=== PATIENT | male | born 2000 | race Caucasian/White ===

== ENCOUNTER 2023-01-25 02:33 | Observation (INO) | payer OTHER ==
[2023-01-25] MEDS ORDERED: CEFAZOLIN 2 GM VIAL ONE ×2 (03:11→15:36)
[2023-01-25] MEDS ORDERED: Boostrix 0.5 ML (Tdap) VIAL (>/=7 yrs of age) ONE (03:12)
[2023-01-25] MEDS ORDERED: Sodium Chloride 0.9% 100 ML ONE ×2 (03:12→15:36)
[2023-01-25] MEDS ORDERED: KETAMINE 100 MG/ML (5ML VIAL) ONE (03:53)
[2023-01-25] MEDS ORDERED: Ondansetron PF 4 MG/2 ML Vial ONE ×2 (03:53→15:47)
[2023-01-25 03:55] LABS: #Monocytes 0.7 thou/uL (0.11-0.59); #Neutrophils 4.9 thou/uL (1.40-6.50); %Basophils 0.4 % (0.0-1.0); %Eosinophils 0.6 % (0.0-10.0); %Monocytes 9.5 % (0.0-10.0); %Neutrophils 69.2 % (42.0-75.0); Hematocrit 35.1 % (42.0-52.0); Hemoglobin 12.1 g/dL (14.0-18.0); Mean Corpuscular HGB CONC 34.5 g/dL (32.0-36.0); Mean Corpuscular Hemoglobin 32.4 pg (27.0-31.0); Mean Corpuscular Volume 94.1 fl (78.0-98.0); Mean Platelet Volume 10.5 fL (7.4-10.4); Platelet Count 203 10x3/uL (130-400); RBC Distribution Width 12.1 % (11.5-14.5); Red Blood Cell (RBC) Count 3.73 mill/uL (4.70-6.10); White Blood Cell (WBC) Count 7.1 10x3/uL (4.8-10.8)
[2023-01-25] MEDS ORDERED: Ketorolac Tromethamine 30 MG/ML VIAL ONE (03:57)
[2023-01-25 04:18] LABS: ALT (SGPT) 37 U/L (8-55); AST (SGOT) 32 U/L (5-34); Albumin 2.9 g/dL (3.5-5.0); Alkaline Phosphatase 44 U/L (40-110); Anion Gap 18 mmol/L (10-20); BUN (Urea Nitrogen) 14 mg/dL (8.9-20.6); Bilirubin, Total 0.4 mg/dL (0.2-1.2); Calc. Creatinine Clearance 0 mL/min (70-130); Carbon Dioxide 18 mmol/L (22-29); Chloride 115 mmol/L (98-107); Estimated GFR 30; Globulin 1.9 g/dL (2.4-3.5); Glucose 76 mg/dL (70-105); Lipase 26 U/L (8-78); Potassium 2.8 mmol/L (3.5-5.1); Protein, Total 4.8 g/dL (6.0-8.3); Sodium 148 mmol/L (136-145)
[2023-01-25 04:21] LABS: Calcium 6.5 mg/dL (7.8-10.44); Troponin I Less than 0.010 ng/mL (< 0.028)
[2023-01-25 04:30] LABS: INR-International Normal Ratio 1.3; PTT 32.1 sec (22.9-36.1); Prothrombin Time 17.2 sec (12.0-14.7)
[2023-01-25] MEDS ORDERED: Acetaminophen 325 MG TAB PO PRN (05:00)
[2023-01-25] MEDS ORDERED: Sodium Chloride 0.9% 1,000 ML IV SCH (05:00)
[2023-01-25] MEDS ORDERED: Ondansetron ODT 4 MG TAB SL PRN (05:00)
[2023-01-25] MEDS ORDERED: Ondansetron PF 4 MG/2 ML Vial IVP PRN (05:00)
[2023-01-25 05:01] LABS: Acetaminophen Less than 10 mcg/mL (10.0-30.0); Alcohol Less than 10.0 mg/dL (Less than 10); Salicylate Less than 8.0 mg/dL (15.0-30.0)
[2023-01-25 06:05] VITALS: BMI 30.9
[2023-01-25] MEDS ORDERED: Lactated Ringer's 1,000 ML IV SCH (06:15)
[2023-01-25] MEDS ORDERED: traMADol HCl 50 MG TAB PO PRN (06:17)
[2023-01-25 06:18] LABS: Anion Gap 13 mmol/L (10-20); BUN (Urea Nitrogen) 18 mg/dL (8.9-20.6); Calc. Creatinine Clearance 157 mL/min (70-130); Calcium 8.8 mg/dL (7.8-10.44); Carbon Dioxide 22 mmol/L (22-29); Chloride 110 mmol/L (98-107); Estimated GFR 106; Glucose 98 mg/dL (70-105); Potassium 3.5 mmol/L (3.5-5.1); Sodium 141 mmol/L (136-145)
[2023-01-25] MEDS ORDERED: Morphine 2 MG/ML VIAL SLOW IVP PRN (06:18)
[2023-01-25] MEDS ORDERED: Magnesium 2 GM/50 ML(in water) 2 GM in Premix 1 BAG IVPB SCH (06:30)
[2023-01-25] MEDS: Lactated Ringer's 1,000 ML IV SCH ×3 (07:41→23:56)
[2023-01-25 08:06] LABS: #Monocytes 1.2 thou/uL (0.11-0.59); #Neutrophils 9.7 thou/uL (1.40-6.50); %Basophils 0.2 % (0.0-1.0); %Eosinophils 0.1 % (0.0-10.0); %Lymphocytes 11.3 % (21.0-51.0); %Monocytes 9.3 % (0.0-10.0); Hematocrit 41.9 % (42.0-52.0); Hemoglobin 14.6 g/dL (14.0-18.0); Mean Corpuscular HGB CONC 34.8 g/dL (32.0-36.0); Mean Corpuscular Hemoglobin 32.6 pg (27.0-31.0); Mean Corpuscular Volume 93.5 fl (78.0-98.0); Mean Platelet Volume 10.5 fL (7.4-10.4); Platelet Count 233 10x3/uL (130-400); RBC Distribution Width 12.3 % (11.5-14.5); Red Blood Cell (RBC) Count 4.48 mill/uL (4.70-6.10); White Blood Cell (WBC) Count 12.4 10x3/uL (4.8-10.8)
[2023-01-25 08:27] LABS: Anion Gap 12 mmol/L (10-20); BUN (Urea Nitrogen) 18 mg/dL (8.9-20.6); Calc. Creatinine Clearance 159 mL/min (70-130); Calcium 8.8 mg/dL (7.8-10.44); Carbon Dioxide 22 mmol/L (22-29); Chloride 111 mmol/L (98-107); Estimated GFR 107; Glucose 99 mg/dL (70-105); Magnesium 1.8 mg/dL (1.6-2.6); Phosphorus 3.2 mg/dL (2.3-4.7); Potassium 3.9 mmol/L (3.5-5.1); Sodium 141 mmol/L (136-145)
[2023-01-25 08:28] LABS: Magnesium 1.8 mg/dL (1.6-2.6)
[2023-01-25] MEDS ORDERED: CEFAZOLIN 2 GM in Sodium Chloride 0.9% 100 ML IVPB SCH (08:30)
[2023-01-25] MEDS: Potassium Chloride 20 MEQ in Premix 1 BAG IVPB SCH ×2 (08:51→11:34)
[2023-01-25] MEDS: Acetaminophen 500 MG TAB PO SCH ×2 (13:01→18:14)
[2023-01-25] MEDS: traMADol HCl 50 MG TAB PO SCH ×2 (13:01→18:14)
[2023-01-25] MEDS ORDERED: fentaNYL 50 mcg/mL 1 mL Vial ONE (13:44)
[2023-01-25] MEDS ORDERED: Midazolam HCl 2 mg/2 ml Vial ONE (13:45)
[2023-01-25] MEDS ORDERED: Bupivacaine PF 0.5% 30 ML VIAL ONE (13:45)
[2023-01-25] MEDS ORDERED: Dexmedetomidine 200 MCG/2 ML VIAL ONE ×2 (15:43→15:44)
[2023-01-25] MEDS ORDERED: PROPOFOL 20 ML ONE (15:44)
[2023-01-25] MEDS ORDERED: Fentanyl 250 MCG/5 ML VIAL ONE (15:44)
[2023-01-25] MEDS ORDERED: PROPOFOL 200 MG/20 ML VIAL ONE (15:47)
[2023-01-25] MEDS ORDERED: Lidocaine 1% PF 5 ML VIAL ONE (15:47)
[2023-01-25] MEDS ORDERED: Bupivacaine HCl 0.5%/Epinephrine 1:200,000/PF 30 ml Vial ONE (15:47)
[2023-01-25] MEDS ORDERED: Dexamethasone 20 MG/5 ML VIAL ONE (15:47)
[2023-01-25] MEDS ORDERED: PHENYLEPHRINE-NS 100 MCG/ML 10 ML SYRINGE ONE (16:09)
[2023-01-25] MEDS ORDERED: Calcium Chloride 1 GM/10 ML Abboject SYRINGE ONE (16:18)
[2023-01-26] MEDS: Acetaminophen 500 MG TAB PO SCH ×2 (00:08→05:56)
[2023-01-26] MEDS: traMADol HCl 50 MG TAB PO SCH ×2 (00:09→05:56)
[2023-01-26] MEDS: CEFAZOLIN 2 GM in Sodium Chloride 0.9% 100 ML IVPB SCH ×2 (00:09→09:25)
[2023-01-26] MEDS: Lactated Ringer's 1,000 ML IV SCH (02:56)
[2023-01-26] MEDS ORDERED: Ibuprofen 600 MG TAB PO PRN (11:55)
[2023-01-26 12:36] VITALS: BP 141/79; TEMP 98.4
== END 2023-01-26 14:42 | disposition home or self-care (01) ==
LOC: ERS 02:33 → EEVIPCON 04:43 → SURG A 04:43
PROVIDERS: ADMIT Surgery; ATTEND Surgery
PROC: 0PSH04Z Reposition Right Radius with Internal Fixation Device, Open Approach (ICD-10-PCS; principal; 2023-01-25)
DX: S52.301A Unspecified fracture of shaft of right radius, initial encounter for closed fracture (principal); N17.9 Acute kidney failure, unspecified; E87.5 Hyperkalemia; E83.52 Hypercalcemia; E86.0 Dehydration; M54.9 Dorsalgia, unspecified; S30.811A Abrasion of abdominal wall, initial encounter; S20.312A Abrasion of left front wall of thorax, initial encounter; S40.812A Abrasion of left upper arm, initial encounter; V23.49XA Other motorcycle driver injured in collision with car, pick-up truck or van in traffic accident, initial encounter; Y92.410 Unspecified street and highway as the place of occurrence of the external cause
CPT/HCPCS: 29125; 36415; 70450; 71045; 71260; 72125; 74177; 80053; 80307; 83690; 83735; 84100; 84484; 85025; 85610; 85730; 86850; 86900; 86901; 90715; 93005; 96361; 96365; 96366; 96367; 96375; 99152; 99153; C1713; C1874; G0378; G0390; J1100; J1885; J2250; J2405; J2704; J3010; J3475; J3480; J3490; J7050; J7120; S0020